=== PATIENT | male | born 1965 | race Caucasian/White ===

== ENCOUNTER 2021-03-23 10:12 | Emergency (ER) | payer MEDICAID, OTHER ==
--- NOTE | 2021-03-23 10:14 | EDM.PDOC ---
ED HPI GENERAL MEDICAL PROBLEM - General Stated Complaint: COVID POS Time Seen by Provider: 03/23/21 10:13 Source of Information: Reports: Patient History Limitations: Reports: No Limitations - History of Present Illness INITIAL COMMENTS - FREE TEXT/NARRATIVE: 55-year-old male presents for Covid symptoms. Patient notes that he began feeling symptomatic around March 15. He took an at-home Covid test which resulted positive. He has been isolating at home. He notes continued shortness of breath, body aches, fevers, nausea (no vomiting), cough, diarrhea. He notes a lack of appetite secondary to nausea but has not had any vomiting. He does not complain of chest pain and does not complain of shortness of breath at rest, only when he has coughing fits. He has not been vaccinated against COVID-19. He believes he may have had Covid once before last year but never was tested. Aside from [id number] medications has not taken anything specific and has not sought medical advice for this Covid infection. Has not had a monoclonal antibody infusion. - Related Data Allergies Allergy/AdvReac Type Severity Reaction Status Date / Time No Known Allergies Allergy Verified 03/23/21 10:15 Home Meds: Home Meds Ibuprofen [Motrin] 600 mg PO Q6H PRN #30 tab 03/23/21 [Rx] Ondansetron [Zofran ODT] 4 mg PO Q6H PRN #12 tab.dis 03/23/21 [Rx] ED ROS GENERAL - Review of Systems Review Of Systems: Comprehensive ROS is negative, except as noted in HPI. ED EXAM, GENERAL - Physical Exam Exam: See Below Exam Limited By: No Limitations General Appearance: Alert, WD/WN, No Apparent Distress Ears: Hearing Grossly Normal Throat/Mouth: Normal Voice, No Airway Compromise Head: Atraumatic, Normocephalic Respiratory/Chest: No Respiratory Distress, Lungs Clear, Normal Breath Sounds, No Accessory Muscle Use Cardiovascular: Normal Peripheral Pulses, Regular Rate, Rhythm Extremities: Normal Inspection Neurological: Alert, Normal Cognition, Normal Gait Psychiatric: Normal Affect, Normal Mood Skin Exam: Warm, Dry, Intact, Normal Color Course - Vital Signs Last Recorded V/S: Last Vital Signs Temp 97.1 F 03/23/21 10:16 Pulse 88 03/23/21 10:16 Resp 18 12/22/21 10:16 BP 131/86 03/23/21 10:16 Pulse Ox 97 03/23/21 10:16 - Orders/Labs/Meds Orders: Active Orders 24 hr Category Date Time Status Saline Lock Insert [OM.PC] Stat Oth 03/23/21 10:21 Ordered Labs: Laboratory Tests 03/23/21 03/23/21 03/23/21 Range/Units 10:28 10:28 10:36 WBC 4.00 (4.0-11.0) K/uL RBC 4.99 (4.50-5.90) M/uL Hgb 15.2 (13.0-17.0) g/dL Hct 43.4 (38.0-50.0) % MCV 87.0 (80.0-98.0) fL MCH 30.5 (27.0-32.0) pg MCHC 35.0 (31.0-37.0) g/dL RDW Std Deviation 38.9 (28.0-62.0) fl RDW Coeff of Brianna 12 (11.0-15.0) % Plt Count 122 L (150-400) K/uL MPV 10.30 (7.40-12.00) fL Neut % (Auto) 69.7 (48.0-80.0) % Lymph % (Auto) 23.5 (16.0-40.0) % [place] % (Auto) 6.5 (0.0-15.0) % Eos % (Auto) 0.0 (0.0-7.0) % Baso % (Auto) 0.3 (0.0-1.5) % Neut # (Auto) 2.8 (1.4-5.7) K/uL Lymph # (Auto) 0.9 (0.6-2.4) K/uL [place] # (Auto) 0.3 (0.0-0.8) K/uL Eos # (Auto) 0.0 (0.0-0.7) K/uL Baso # (Auto) 0.0 (0.0-0.1) K/uL Nucleated RBC % 0.0 /100WBC Nucleated RBCs # 0 K/uL Sodium 137 (136-148) mmol/L Potassium 3.5 (3.5-5.1) mmol/L Chloride 99 (98-107) mmol/L Carbon Dioxide 28.2 (21.0-32.0) mmol/L BUN 9 (7.0-18.0) mg/dL Creatinine 1.1 (0.8-1.3) mg/dL Est Cr Clr Drug Dosing 83.28 mL/min Estimated GFR (MDRD) > 60.0 ml/min Glucose 110 H (74-106) mg/dL Calcium 8.0 L (8.5-10.1) mg/dL Total Bilirubin 0.8 (0.2-1.0) mg/dL AST 31 (15-37) IU/L ALT 32 (14-63) IU/L Alkaline Phosphatase 60 (46-116) U/L Troponin I < 0.050 (0.000-0.056) ng/mL C-Reactive Protein 6.60 H (0.00-0.90) mg/dL Total Protein 6.9 (6.4-8.2) g/dL Albumin 3.2 L (3.4-5.0) g/dL Globulin 3.7 (2.6-4.0) g/dL Albumin/Globulin Ratio 0.9 (0.9-1.6) SARS-CoV-2 RNA (TOPHER) NEGATIVE (NEGATIVE) Meds: Medications Discontinued Medications Generic Name Dose Route Start Last Admin Trade Name Marquise PRN Reason Stop Dose Admin Acetaminophen 1,000 mg 03/23/21 10:21 03/23/21 10:36 Acetaminophen 500 Mg Tab PO 03/23/21 10:22 1,000 mg ONETIME ONE Administration Sodium Chloride 1,000 mls @ 999 mls/hr 03/23/21 10:21 03/23/21 10:35 Normal Saline IV 03/23/21 11:21 999 mls/hr .Bolus ONE Administration Ketorolac Tromethamine 15 mg 03/23/21 10:35 03/23/21 10:38 Ketorolac 30 Mg/Ml Sdv IVPUSH 03/23/21 10:36 15 mg STAT STA Administration Ondansetron HCl 4 mg 03/23/21 10:21 03/23/21 10:36 Ondansetron 4 Mg/2 Ml Sdv IVPUSH 03/23/21 10:22 4 mg ONETIME ONE Administration - Re-Assessments/Exams Free Text/Narrative Re-Assessment/Exam: 03/23/21 10:26 Get basic labs. Will get a chest x-ray. Will get confirmatory Covid swab. Will treat symptomatically with IV fluid bolus, Toradol, Tylenol, Zofran. Kallie damon is oxygenating well on room air, will defer steroids or oxygen therapy. 03/23/21 11:07 Labs are grossly unremarkable, elevated CRP, normal renal function, normal electrolytes. 03/23/21 11:58 COVID swab is negative, however, patient clinically has COVID considering his positive home test, that tested positive, elevated CRP, and CXR consistent with COVID. Perhaps he is no longer shedding enough virus to test positive. Regardless, patient feels much better after IVFB, toradol, zofran. Will d/c with zofran and motrin. Return precautions discussed Departure - Departure Time of Disposition: 11:59 Disposition: Home, Self-Care 01 Condition: Good Clinical Impression: COVID-19 - Discharge Information Prescriptions: Ibuprofen [Motrin] 600 mg PO Q6H PRN #30 tab PRN Reason: Fever Ondansetron [Zofran ODT] 4 mg PO Q6H PRN #12 tab.dis PRN Reason: Nausea Instructions: COVID-19: What to Do If You Are Sick- [facility] [place] 2[place] (06/16/2020) Referrals: PCP,None [Primary Care Provider] - Additional Instructions: Your medications were sent to [facility]. The following information is given to patients seen in the emergency department who are being discharged to home. This information is to outline your options for follow-up care. We provide all patients seen in our emergency department with a follow-up referral. The need for follow-up, as well as the timing and circumstances, are variable depending upon the specifics of your emergency department visit. If you don't have a primary care physician on staff, we will provide you with a referral. We always advise you to contact your personal physician following an emergency department visit to inform them of the circumstance of the visit and for follow-up with them and/or the need for any referrals to a consulting specialist. The emergency department will also refer you to a specialist when appropriate. This referral assures that you have the opportunity for follow-up care with a specialist. All of these measure are taken in an effort to provide you with optimal care, which includes your follow-up. Under all circumstances we always encourage you to contact your private physic norma who remains a resource for coordinating your care. When calling for follow- up care, please make the office aware that this follow-up is from your recent emergency room visit. If for any reason you are refused follow-up, please contact the [facility] Emergency Department at and asked to speak to the emergency department charge nurse. Please follow up with your primary care physician. If you do not have a primary care physician, see below: [facility] [address] [place] [address] [phone] My [facility] [address] [place] [address] [facility] [address] [place] [id number] Sepsis Event Note (ED) - Focused Exam Vital Signs: Vital Signs Temp Pulse Resp BP Pulse Ox 03/23/21 10:16 97.1 F 88 18 131/86 97 - My Orders Last 24 Hours: My Active Orders 03/23/21 10:21 Saline Lock Insert [OM.PC] Stat - Assessment/Plan Last 24 Hours: My Active Orders 03/23/21 10:21 Saline Lock Insert [OM.PC] Stat
[2021-03-23] MEDS ORDERED: Sodium Chloride 0.9% 1,000 ML IV ONE (10:21)
[2021-03-23] MEDS ORDERED: Acetaminophen 500 MG Tab PO ONE (10:21)
[2021-03-23] MEDS ORDERED: Ketorolac 15 MG/ML SDV IVPUSH STA (10:21)
[2021-03-23] MEDS ORDERED: Ondansetron 4 MG/2 ML SDV IVPUSH ONE (10:21)
[2021-03-23] MEDS ORDERED: Ketorolac 30 MG/ML SDV IVPUSH STA (10:35)
[2021-03-23 11:05] LABS: BLOOD UREA NITROGEN,BUN 9 mg/dL (7.0-18.0); CARBON DIOXIDE,CO2 28.2 mmol/L (21.0-32.0); CHLORIDE,CL 99 mmol/L (98-107); GLUCOSE RANDOM 110 mg/dL (74-106); POTASSIUM,K 3.5 mmol/L (3.5-5.1); SODIUM,NA 137 mmol/L (136-148)
--- NOTE | 2021-03-23 11:13 | CR ---
Indication: COVID-19 positive. Technique: Chest 1 view. Comparison: None. Findings/Impression: Cardiovascular and mediastinum: Heart size and vasculature are normal in caliber and appearance. Lungs and pleural space: Subtle bilateral infiltrates in a pattern suspicious for moderate COVID pneumonitis. No effusions and no pneumothorax. Bones and soft tissues: No acute findings. Dictated by Moisés Foster MD @ 03/23/2021 11:12:07 AM (Electronically Signed)
== END 2021-03-23 12:10 | disposition home or self-care (01) ==
LOC: MW.ED 10:12
DX: U07.1 COVID-19 (principal)
CPT/HCPCS: 36415; 71045; 80053; 84484; 85025; 86140; 87635; 96374; 96375; 99285; A9270; J1885; J2405; J7030; U0002